=== PATIENT | female | born 1970 | race Caucasian/White ===

== ENCOUNTER → 2021-11-26 15:24 | Outpatient (CLI) | payer BC, SELFPAY | PROVIDERS: PCP Family Medicine; Visit Provider Nurse Practitioner Family | DX: Z20.822 Contact with and (suspected) exposure to COVID-19 (principal) | CPT/HCPCS: C9803; U0003; U0005 ==

== ENCOUNTER 2022-02-23 18:13 | Emergency (ER) | payer BC, SELFPAY ==
[2022-02-23 20:03] VITALS: BP 148/79; PULSE 72; RESP 20; TEMP 37; O2SAT 100; BMI 23.0
--- NOTE | 2022-02-23 20:03 | HMH.EDUTC ---
[facility] [place] Clinical Impression: Poison sada Disposition: Home, Self-Care Condition on Discharge: Good Instructions: DI for Contact Dermatitis, DI for Poison Sada Allergy Additional Instructions: Try to avoid contact with the offending substance (poison sada). Don't start the oral steroids until tomorrow. Don't put the topical steroids (triamcinolone) on your face or your groin. Follow up with your regular doctor. GO TO THE ER FOR ANY WORSENING SYMPTOMS OR CONCERNS Prescriptions: hydrOXYzine pamoate [Vistaril] 25 mg PO Q6HP PRN #30 cap PRN Reason: Itching Transmission Status: Received by [id number] methylPREDNISolone [Medrol] 4 mg PO DIRECTED 6 Days #21 packet Transmission Status: Received by [id number] Triamcinolone Acetonide 1 applicatio TP TIDP PRN 7 Days #1 gm PRN Reason: Itching Transmission Status: Received by [id number] Referrals: Addison Kohli MD [Primary Care Provider] - Time of Disposition: 20:28 Medical Decision Making - Medical Records Medical records reviewed: No: I reviewed the patient's medical records. - Blas Inquiry Pt receiving controlled substance: No Vital Signs: 02/23/22 20:03 02/23/22 20:33 Temperature 98.6 F 98.6 F Temperature Source Oral Pulse Rate 72 Pulse Rate [Left] 72 Respiratory Rate 20 20 Blood Pressure 148/79 H Blood Pressure [Right Arm] 148/79 H Blood Pressure Mean [Right Arm] 102 02 Sat by Pulse Oximetry 100 Orders (Tests/Meds): ED MEDICATIONS Discontinued Medications Generic Name Dose Route Start Last Admin Trade Name Freq PRN Reason Stop Dose Admin Methylprednisolone Sodium Succinate 125 mg 02/23/22 20:24 02/23/22 20:30 Methylprednisolone Sod Succ 125mg Vial IM 02/23/22 20:25 125 mg ONCE ONE Administration [facility] [place] - General Stated complaint: posion Sada Time Seen by Provider: 02/23/22 20:03 - History of Present Illness Provider Complaint: She worked out side in her flower beds about 3 days ago. She began to having itching that night. At this time she has a itchy rash on her neck, face, both hand, both forearm and her abdomen. She has a history of being very sensitive poison sada and she knows that she pulled some of it out of her flower bed that day. - Related Data Previous Rx's Medication Instructions Recorded Triamcinolone Acetonide 1 applicatio TP TIDP PRN 7 Days #1 02/23/22 gm hydrOXYzine pamoate [Vistaril] 25 mg PO Q6HP PRN #30 cap 02/23/22 methylPREDNISolone [Medrol] 4 mg PO DIRECTED 6 Days #21 02/23/22 packet Allergies Allergy/AdvReac Type Severity Reaction Status Date / Time Penicillins Allergy Rash Verified 02/23/22 20:08 Sulfa (Sulfonamide Allergy Anaphylaxis Verified 02/23/22 20:08 Antibiotics) diphenhydramine AdvReac Hypotension Verified 02/23/22 20:08 [From Benadryl] [facility] History - Hepatitis A Screen Attestation statement:: This patient has been screened for Hepatitis A risk factors. I have reviewed the patient's past medical history: Yes ROS Obtained: Yes All systems reviewed & no additional complaints - Constitutional Constitutional: Denies chills, Denies fever(s) - Musculoskeletal Musculoskeletal: Denies joint pain - Integumentary/Breasts Skin/Breast: Reports as per HPI Physical Exam - General General appearance: alert, in no apparent distress - Head Head exam: atraumatic, normocephalic, normal inspection - Eye Eye exam: Present: normal appearance, PERRL, EOMI - ENT ENT exam: Present: normal exam, normal oropharynx, mucous membranes moist, TM's normal bilaterally, normal external ear exam - Neck Neck exam: Present: normal inspection, full ROM, trachea midline. Absent: meningismus, lymphadenopathy - Chest Chest inspection: Present: normal inspection, symmetric chest wall rise. Absent: tenderness - Respiratory Respiratory exam: Present: normal lung sounds bilaterally. Absent: respiratory
[2022-02-23 20:33] VITALS: BP 148/79; PULSE 72; RESP 20; TEMP 37
== END 2022-02-23 20:37 | disposition home or self-care (01) ==
PROVIDERS: Emergency Provider Nurse Practitioner Family; PCP Family Medicine
DX: L23.7 Allergic contact dermatitis due to plants, except food (principal)
CPT/HCPCS: 96372; 99212; G0463

== ENCOUNTER 2023-12-21 09:18 | Outpatient (CLI) | payer BC, SELFPAY ==
--- NOTE | 2023-12-21 09:24 | XR_ITS ---
FINAL REPORT CLINICAL HISTORY: ABDOMINAL PAIN right sided pain under ribs x 3 months FINDINGS: ABDOMEN SINGLE VIEW There is a nonspecific, nonobstructive bowel gas pattern. No bowel dilation is identified. There is a moderate amount of retained stool throughout the colon. There is an irregular calcified focus in the right hemipelvis, probably due to calcified fibroid. IMPRESSION: Moderate stool burden. Reviewed, Interpreted and Dictated by Marcos Topete MD Transcribed by Amna Vasquez Authenticated and . [facility]
--- NOTE | 2023-12-21 09:24 | XR_ITS ---
FINAL REPORT CLINICAL HISTORY: ASTHMA (x 53 yrs),DYSPNEA FINDINGS: TWO-VIEW CHEST The heart size is normal. The mediastinum is normal. The lungs are clear. There is no pneumothorax. IMPRESSION: No acute cardiopulmonary process. Reviewed, Interpreted and Dictated by Marcos Topete MD Transcribed by Amna Vasquez Authenticated and [facility]
== END 2023-12-21 23:59 ==
LOC: RAD 09:20
PROVIDERS: PCP Family Medicine; Visit Provider Nurse Practitioner Family
DX: R10.9 Unspecified abdominal pain (principal)
CPT/HCPCS: 71046; 74018